=== PATIENT | female | born 1980 | race Hispanic/Latino ===

== ENCOUNTER 2017-12-30 14:10 | Emergency (ER) | payer OTHER ==
[~2017-12-30] VITALS: Ht 167.6 cm; Wt 90.7 kg
[~2017-12-30 14:10] MED LIST: ANTIVERT 25 MG25 M1 PO
--- NOTE | 2017-12-30 18:03 | ED NECK/BACK PAIN COMPLAINT ---
History of Present Illness General Chief Complaint: General Adult Stated Complaint: LOW BACK PAIN,BURNING SENSATION ON RT FOOT Source: patient, old records Exam Limitations: no limitations Vital Signs & Intake/Output Vital Signs & Intake/Output Vital Signs Date Time Temp Pulse Resp B/P B/P Pulse O2 O2 Flow FiO2 Mean Ox Delivery Rate 12/30 1816 98.1 74 16 117/65 99 Room Air 12/30 1450 98.2 74 20 129/84 99 Room Air Allergies Coded Allergies: MDX - Oxycodone (OXYCODONE) (GI SXS 04/09/14) Reconcile Medications Cyclobenzaprine HCl 5 MG TABLET 1 TAB PO TIDPRN PRN pain Meclizine (Antivert) 25 MG TAB 1 TAB PO Q6P PRN VERTIGO Methylprednisolone. (Medrol) 4 MG TAB.DS.PK 1 DP PO AD lumbar radicu 6 on day 1 then reduce by one tablet daily until gone Triage Note: C/O MID BACK PAIN X 2 DAYS, LEFT FOOT PAIN AND BURNING X 1 MONTH. DENIES URINARY SXS, R . DENIES FALL OR INJURY. Triage Nurses Notes Reviewed? yes Onset: Abrupt Duration: day(s): (2), constant Timing: recent history Quality/Severity: moderate (aching) Location: paraspinous muscles Radiation: feet Method of Injury: unknown Loss of Consciousness: no loss of consciousness Modifying Factors: rest Associated Symptoms: denies : No Patient currently breastfeeds: No HPI: 37-year-old female presents to the ER for evaluation complaining of bilateral lower back pain for the past 2 days associated with right foot burning pins and needles for the past few months. She denies any known injury or trauma. No saddle anesthesia urinary bowel incontinence. Patient denies history of similar symptoms in the past. She called her primary care physician Dr. Brown advised to come to the ER. She is not taken anything for the pain. No abdominal pain urinary complaints fever chills, CHEST pain shortness of breath (Terry Cantrell) Past History Travel History Traveled to [place] past 21 day No Medical History Any Pertinent Medical History? none Neurological: NONE EENT: NONE Cardiovascular: NONE Respiratory: NONE Gastrointestinal: NONE Hepatic: NONE Renal: NONE Musculoskeletal: NONE Psychiatric: NONE Endocrine: NONE Surgical History Surgical History: non-contributory Psychosocial History What is your primary language Indonesian Tobacco Use: Never used ETOH Use: denies use Family History Hx Contributory? No (Terry Cantrell) Review of Systems Review of Systems Constitutional: Reports: see HPI. Comments Review of systems: See HPI, All other systems negative. Constitutional, no chills no fever, HEENT: no sore throat no congestion Cardiovascular: No chest pain Skin: no rashes, no change in skin Respiratory: No dyspnea no cough GI: No nausea no vomiting, Muscle skeletal: No joint pain, no neck pain, Neurologic: , no headache Heme/endocrine: No bruising (Terry Cantrell) Physical Exam Physical Exam General Appearance: well developed/nourished, no apparent distress, alert, awake Neck: normal inspection, supple, full range of motion Comments: Well-developed well-nourished person in no acute distress HEENT: Normal EENT exam; PERRL, EOMI, HEAD is atraumatic. moist mucous membranes. Neck: Supple, normal range of motion Back: Bilateral paralumbar muscle tenderness to palpation in the midline tenderness no ecchymosis no erythema no CVA tenderness. Full range of motion Cardiovascular: Regular rate and rhythms no murmurs rubs or gallops, normal JVP Respiratory: Chest nontender.There were no bony deformities, no asymmetry. No respiratory distress. Patient speaking in full complete sentences. Breath sounds clear to auscultation bilaterally: NO W/R/R Abdomen: Soft, nontender es. Extremity: Positive straight leg raise the right lower extremity No edema, full range of motion of extremities, normal and equal pulses bilaterally, 5 out of 5 strength noted to bilateral upper and lower extremities Neuro: Alert oriented x3, motor sensory normal, There were no obvious focal neurologic abnormalities. Skin: No appreciable rash on exposed skin, skin is warm and dry. Psych: Mood and affect is normal, memory and judgment is normal. Core Measures CVA/TIA Diagnosis: No (Terry Cantrell) Progress Differential Diagnosis: cauda equina syn, herniated disc, myofascial strain, pyelo/UTI, spinal cord inj, T/L spine injury, ureterolithiasis Plan of Care: Patient clinically looks well. Patient has no evidence of radiculopathy. No urinary bowel dysfunction. No numbness in the genital area. Strength intact. Gross sensation intact. Patient resting comfortably and in no apparent distress. Pain is worse with range of motion. Pain is reproducible IN back with no bruising or ecchymosis noted. . Patient is to follow-up with primary care doctor. May need MRI of the lower back at some point time. No concerns for cauda equina at this point time. I considered this diagnosis but patient does not have any symptoms consistent with cauda equina. Patient has no secondary causes of back pain. No cardiac, pulmonary, or abdominal complaints. No abdominal pain on exam. Cardiac pulmonary exam within normal limits. No rashes, afebrile, denies recent weight loss, dizziness, lightheadedness (Terry Cantrell) Departure Departure Time of Disposition: 1809 Disposition: HOME OR SELF CARE Condition: Stable Clinical Impression Primary Impression: Lumbar strain Referrals: Haim Brown MD (PCP/Family) Additional Instructions: Follow up with dr brown this week. interchange ice and heat to your back. flexeril as directed- this is a muscle relaxer and can make you drowsy. medrol dose josey as directed. return with any concerns Departure Forms: Customer Survey General Discharge Information Prescriptions: Current Visit Scripts Methylprednisolone. (Medrol) 1 DP PO AD #1 DP 6 on day 1 then reduce by one tablet daily until gone Cyclobenzaprine HCl 1 TAB PO TIDPRN PRN pain #12 TAB (Terry Cantrell) PA/[employer] Co-Sign Statement Statement: ED Attending supervision documentation- [] I saw and evaluated the patient. I have also reviewed all the pertinent lab results and diagnostic results. I agree with the findings and the plan of care as documented in the PA's/[employer]'s documentation. [x] I have reviewed the ED Record and agree with the PA's/[employer]'s documentation. [] Additions or exceptions (if any) to the PAs/[employer]PER[employer]'s note and plan are summarized below: [] (Marcos Kathleen DO)
[2017-12-30] MEDS ORDERED: MEDROL4 M2 PO (18:12)
[2017-12-30] MEDS ORDERED: CYCLOBENZAPRINE5 M2 PO (18:12)
[2017-12-30 18:16] VITALS: BP 117/65
== END 2017-12-30 18:17 ==
LOC: ERH 14:10
DX: S39.012A Strain of muscle, fascia and tendon of lower back, initial encounter (principal); X58.XXXA Exposure to other specified factors, initial encounter; Y92.9 Unspecified place or not applicable; Y93.9 Activity, unspecified